=== PATIENT | female | born 1965 | race American Indian/Alaskan Native ===

== ENCOUNTER 2021-06-05 11:20 | Emergency (ER) | payer SELFPAY ==
[2021-06-05 11:41] VITALS: BP 124/77
--- NOTE | 2021-06-05 11:43 | Emergency Department Report ---
ED Chest Pain HPI - General Chief Complaint: Chest Pain Stated Complaint: CHEST PAIN Time Seen by Provider: 06/05/21 11:41 Source: patient Mode of arrival: Ambulatory Limitations: No Limitations - History of Present Illness Initial Comments: 56-year-old female with a past medical history of SVT status post ablation in hyperlipidemia presents to the ER today with complaints of left-sided chest pain, epigastric pain, left flank pain. Patient states that this past Wednesday she started with pain in her left flank, left upper lumbar area, then on Wednesday she started with nausea and vomiting and pain in her left chest which started while she was vomiting and epigastric pain. She states that she has continued to have nausea and vomiting, left chest pain and left flank/upper lumbar pain since Wednesday. The pain have been constant and just not improving. She states that this morning so far she is mainly nauseous but no more vomiting since yesterday. She denies any diarrhea. She states the last time she had a bowel movement was about 2 days ago. She denies any hematemesis, coffee-ground emesis melena or hematochezia. Denies any UTI symptoms. She states that she has been short above, but mainly on exertion. She states that she did notice some swelling about the ankles about 2 weeks ago but this has resolved. She reports no calf pain. She denies any URI symptoms or cough. She denies any apparent fever or chills. She denies any recent travel, ill contacts, bad food intake or antibiotic use recently. She states that she did get the COVID-19 vaccine including the booster, the Zookal. She states that the last time she had a stress test was in 2009, it was a treadmill stress test and was normal. She denies any alcohol abuse, tobacco use, or illicit drug use. MD Complaint: chest pain, other (Epigastric pain, left flank pain) -: days(s) (3 days ago) Severity scale (0 -10): 6 - Related Data Previous Rx's Medication Instructions Recorded Last Taken Type Famotidine [Pepcid] 20 mg PO BID #30 tablet 06/05/21 Unknown Rx HYDROcodone/APAP 5-325 [[place] 1 each PO Q4HR PRN #12 tablet 06/05/21 Unknown Rx 5/325] Ondansetron [Zofran Odt] 4 mg PO Q8HR #15 tab.rapdis 06/05/21 Unknown Rx Sucralfate [Carafate] 1 gm PO Q6HR #60 tablet 06/05/21 Unknown Rx Allergies Allergy/AdvReac Type Severity Reaction Status Date / Time Sulfa (Sulfonamide Allergy Hives Verified 06/05/21 11:36 Antibiotics) Heart Score - HEART Score History: Slightly suspicious EKG: Normal Age: 45-65 Risk factors: 1-2 risk factors Troponin: < normal limit HEART Score: 2 - EKG Read Time Time EKG Completed: 11:30 EKG Read Time: 11:42 - Critical Actions Critical Actions: 0-3 pts:0.9-1.7%risk of adverse cardiac event.Candidate for discharge ED Review of Systems ROS: Stated complaint: CHEST PAIN Other details as noted in HPI Comment: All other systems reviewed and negative Constitutional: denies: chills, fever Eyes: denies: eye pain, eye discharge, vision change ENT: denies: ear pain, throat pain, dental pain, hearing loss, epistaxis, congestion Respiratory: shortness of breath. denies: cough, SOB with exertion, SOB at rest, wheezing Cardiovascular: chest pain. denies: palpitations Gastrointestinal: abdominal pain, nausea, vomiting. denies: diarrhea, constipation, hematemesis, hematochezia Genitourinary: denies: urgency, dysuria, frequency, hematuria, discharge, abnormal menses, dyspareunia Musculoskeletal: back pain Skin: denies: rash, lesions, change in color, change in hair/nails, pruritus Neurological: denies: headache, weakness, numbness, paresthesias, confusion, abnormal gait, vertigo Psychiatric: denies: anxiety, depression, auditory hallucinations, visual hallucinations, homicidal thoughts, suicidal thoughts Hematological/Lymphatic: denies: easy bleeding, easy bruising, swollen glands ED Past Medical Hx - Surgical History Past Surgical History?: No - Medications Home Medications: Home Medications Medication Instructions Recorded Confirmed Last Taken Type Famotidine [Pepcid] 20 mg PO BID #30 tablet 06/05/21 Unknown Rx HYDROcodone/APAP 5-325 [[place] 1 each PO Q4HR PRN #12 tablet 06/05/21 Unknown Rx 5/325] Ondansetron [Zofran Odt] 4 mg PO Q8HR #15 tab.rapdis 06/05/21 Unknown Rx Sucralfate [Carafate] 1 gm PO Q6HR #60 tablet 06/05/21 Unknown Rx ED Physical Exam - General Limitations: No Limitations General appearance: alert, in distress, obese (Patient appears uncomfortable from pain) - Head Head exam: Present: atraumatic, normocephalic, normal inspection - Eye Eye exam: Present: normal appearance, PERRL, EOMI Pupils: Present: normal accommodation - ENT ENT exam: Present: normal exam, mucous membranes moist - Neck Neck exam: Present: normal inspection, full ROM - Respiratory Respiratory exam: Present: normal lung sounds bilaterally. Absent: respiratory distress, wheezes, rales, rhonchi - Cardiovascular Cardiovascular Exam: Present: regular rate, normal rhythm, normal heart sounds - GI/Abdominal GI/Abdominal exam: Present: soft, tenderness (Moderate epigastric tenderness with some guarding; mild left upper quadrant tenderness). Absent: distended, rebound, rigid - Back Exam Back exam: Present: normal inspection, full ROM, CVA tenderness (L) - Neurological Exam Neurological exam: Present: alert, oriented X3, CN II-XII intact, normal gait - Psychiatric Psychiatric exam: Present: normal affect, normal mood - Skin Skin exam: Present: intact ED Course Vital Signs 06/05/21 11:40 Temperature 97.5 F L Pulse Rate 94 H Respiratory 20 Rate Blood Pressure 124/77 [Right] O2 Sat by Pulse 99 Oximetry ED Medical Decision Making - Lab Data Result diagrams: 06/05/21 12:25 06/05/21 12:25 - EKG Data EKG shows normal: sinus rhythm Rate: normal - EKG Data Interpretation: normal EKG - Radiology Data Radiology results: report reviewed Patient: JAJA MYRICK MR#: [id number] : 1965 Acct:[id number] Age/Sex: 56 / F ADM Date: 06/05/21 Loc: ED Attending Dr: Ordering Physician: RAH NORTON Date of Service: 06/05/21 Procedure(s): XR chest routine 2V Accession Number(s): [id number] cc: RAH NORTON Fluoro Time In Minutes: XR chest routine 2V INDICATION / CLINICAL INFORMATION: Chest Pain/epigastric pain COMPARISON: None available. FINDINGS: SUPPORT DEVICES: Loop recorder. HEART / MEDIASTINUM: No significant abnormality. LUNGS / PLEURA: Lungs are clear. Costophrenic sulci are sharp. No pneumothorax. ADDITIONAL FINDINGS: No significant additional findings. IMPRESSION: 1. No acute findings. Signer Name: Hardeep Bradford MD Signed: 06/05/2021 12:52 PM Workstation Name: [id number] Transcribed By: MAYNOR Dictated By: Hardeep Bradford MD Electronically Authenticated By: Hardeep Bradford MD Signed Date/Time: 06/05/21 125 DD/ 125 TD/TT: Patient: JAJA MYRICK MR#: [id number] : 1965 Acct:[id number] Age/Sex: 56 / F ADM Date: 06/05/21 Loc: ED Attending Dr: Ordering Physician: RAH NORTON Date of Service: 06/05/21 Procedure(s): CT abdomen pelvis w con Accession Number(s): [id number] cc: RAH NORTON CT ABDOMEN AND PELVIS WITH IV CONTRAST INDICATION: Epigastric pain. COMPARISON: None available. TECHNIQUE: All CT scans at this facility use dose modulation, automated exposure control, iterative reconstruction or weight based dosing, when appropriate, to reduce radiation dose to as low as reasonably achievable. FINDINGS: Lung Bases: No significant abnormality. Skeletal System: No acute abnormality. ABDOMEN: Liver: No significant abnormality. Gallbladder: No significant abnormality. Bile Ducts: No significant abnormality. Adrenals: No significant abnormality. Right Kidney: No significant abnormality. Left Kidney: No significant abnormality. Pancreas: No significant abnormality. Spleen: No significant abnormality. Upper GI tract: As seen on coronal image 41, there are gas bubbles along the inferior wall of the gastric antrum. Upper GI tract is otherwise unremarkable. Lymph Nodes: No significant adenopathy. Aorta: No significant abnormality. Additional Findings: No significant abnormality. PELVIS: Colon: No acute abnormality. Urinary Bladder and Distal Ureters: No significant abnormality. Appendix: No significant abnormality. Lymph Nodes: No significant adenopathy. Additional Findings: None. IMPRESSION: 1. Probable gastric antral ulcer. Endoscopy is recommended to better characterize this. Signer Name: Issa Jain MD Signed: 06/05/2021 3:57 PM Workstation Name: [id number] Transcribed By: JORDI Dictated By: Issa Jain MD Electronically Authenticated By: Issa Jain MD Signed Date/Time: 06/05/211556 DD/ 50 TD/TT: - Medical Decision Making 1715: Labs reviewed-CBC and CMP unremarkable. Lipase is normal. Urinalysis negative for UTI. Troponin was normal. EKG was also normal without any signs of STEMI or acute ischemic changes or dysrhythmias. Chest x-ray shows nothing acute. CT abdomen pelvis with IV contrast showed possible gastric ulcer but otherwise nothing else acute. Patient reported that her pain was better after initial meds, but when she started complaining again about epigastric pain coming back and she was given lidocaine, Maalox and Levsin prior to discharge. She currently sitting in recliner, she does not appear to be in any significant distress, she is not toxic and she is not ill-appearing. She is neurologically intact with a normal gait. Discussed all results with patient. At this time there is no indication for any additional testing, specialist consult or admission to the hospital. Informed patient that she will need to follow-up with GI for an upper endoscopy in the meantime, she will be given medication to cover for possible peptic ulcer disease. Discussed this food choices with patient. Expressed understanding for instructions and agree with plan. Patient was stable at time of discharge. Critical care attestation.: If time is entered above; I have spent that time in minutes in the direct care of this critically ill patient, excluding procedure time. ED Disposition Clinical Impression: Peptic ulcer disease, Epigastric pain, Nonspecific chest pain Disposition: 01 HOME / SELF CARE / HOMELESS Is pt being admited?: No Does the pt Need Aspirin: No Condition: Stable Instructions: Peptic Ulcer, Nonspecific Chest Pain, Adult Additional Instructions: I recommend that you take the Pepcid, Carafate and Protonix as prescribed. Take the Zofran as prescribed to help with any nausea vomiting. Take the hydroco done as prescribed for pain. It is very important that you follow-up with a GI specialist to get an endoscopy to take a closer look at this possible peptic ulcer seen on the CT. If you do not have a GI specialist 1 will be provided for you on your discharge instructions. I do recommend avoiding any form of alcohol, NSAIDs, spicy foods, acidic foods or caffeine as these can flareup his symptoms. Return to the ER if your symptoms changes in any way. Prescriptions: Sucralfate [Carafate] 1 gm PO Q6HR #60 tablet HYDROcodone/APAP 5-325 [[place] 5/325] 1 each PO Q4HR PRN #12 tablet PRN Reason: Pain Famotidine [Pepcid] 20 mg PO BID #30 tablet Ondansetron [Zofran Odt] 4 mg PO Q8HR #15 tab.rosemarie Referrals: [facility] [Provider Group] - 3-5 Days Forms: Work/School Release Form(ED) Time of Disposition: 16:48
[2021-06-05] MEDS ORDERED: SODIUM CHLORIDE 0.9% 1000 ML 1,000 ML IV ONE (11:59)
[2021-06-05] MEDS ORDERED: ASPIRIN 325 MG TAB PO ONE (11:59)
[2021-06-05] MEDS ORDERED: FAMOTIDINE 20 MG TAB PO ONE (12:00)
[2021-06-05] MEDS ORDERED: MORPHINE 4 MG/1 ML INJ IV ONE (12:00)
[2021-06-05] MEDS ORDERED: ONDANSETRON 4 MG/2 ML INJ IV ONE (12:00)
--- NOTE | 2021-06-05 12:56 | XRay Report ---
XR chest routine 2V INDICATION / CLINICAL INFORMATION: Chest Pain/epigastric pain COMPARISON: None available. FINDINGS: SUPPORT DEVICES: Loop recorder. HEART / MEDIASTINUM: No significant abnormality. LUNGS / PLEURA: Lungs are clear. Costophrenic sulci are sharp. No pneumothorax. ADDITIONAL FINDINGS: No significant additional findings. IMPRESSION: 1. No acute findings. Signer Name: Hardeep Bradfrod MD Signed: 06/05/2021 12:52 PM Workstation Name: [id number]
[2021-06-05 13:49] LABS: Basophils % (Auto) 0.5 % (0.0-1.8); Eosinophils # (Auto) 0.1 K/mm3 (0.0-0.4); Eosinophils % (Auto) 1.3 % (0.0-4.3); Hemoglobin 13.9 gm/dl (10.1-14.3); Lymphocytes # (Auto) 1.8 K/mm3 (1.2-5.4); Lymphocytes % (Auto) 35.5 % (13.4-35.0); Mean Corpuscular HGB Conc 33 % (30-34); Mean Corpuscular Volume 92 fl (79-97); Monocytes # (Auto) 0.5 K/mm3 (0.0-0.8); Monocytes % (Auto) 9.7 % (0.0-7.3); Platelet Count 256 K/mm3 (140-440); Red Blood Count 4.67 M/mm3 (3.65-5.03); Red Cell Distribution Width 14.1 % (13.2-15.2)
[2021-06-05 14:15] LABS: Alanine Aminotransferase 12 units/L (7-56); Albumin 4.1 g/dL (3.9-5); BUN/Creatinine Ratio 11; Blood Urea Nitrogen 9 mg/dL (7-17); Calcium 9.1 mg/dL (8.4-10.2); Hemolysis Index 5
--- NOTE | 2021-06-05 16:02 | Cat Scan Report ---
CT ABDOMEN AND PELVIS WITH IV CONTRAST INDICATION: Epigastric pain. COMPARISON: None available. TECHNIQUE: All CT scans at this facility use dose modulation, automated exposure control, iterative reconstructi on or weight based dosing, when appropriate, to reduce radiation dose to as low as reasonably achieva ble. FINDINGS: Lung Bases: No significant abnormality. Skeletal System: No acute abnormality. ABDOMEN: Liver: No significant abnormality. Gallbladder: No significant abnormality. Bile Ducts: No significant abnormality. Adrenals: No significant abnormality. Right Kidney: No significant abnormality. Left Kidney: No significant abnormality. Pancreas: No significant abnormality. Spleen: No significant abnormality. Upper GI tract: As seen on coronal image 41, there are gas bubbles along the inferior wall of the gas tric antrum. Upper GI tract is otherwise unremarkable. Lymph Nodes: No significant adenopathy. Aorta: No significant abnormality. Additional Findings: No significant abnormality. PELVIS: Colon: No acute abnormality. Urinary Bladder and Distal Ureters: No significant abnormality. Appendix: No significant abnormality. Lymph Nodes: No significant adenopathy. Additional Findings: None. IMPRESSION: 1. Probable gastric antral ulcer. Endoscopy is recommended to better characterize this. Signer Name: Issa Jain MD Signed: 06/05/2021 3:57 PM Workstation Name: [id number]
[2021-06-05] MEDS ORDERED: ALUM-MAG HYDROXIDE-SIMETHICONE 200-200-20MG/5ML ORAL LIQD 30 ML PO ONE (16:11)
[2021-06-05] MEDS ORDERED: HYOSCYAMINE SUBL 0.125 MG TAB SL ONE (16:11)
[2021-06-05] MEDS ORDERED: LIDOCAINE VISCOUS 2% 15 ML ORAL LIQD PO ONE (16:11)
[2021-06-05 16:29] LABS: Bilirubin,Urine NEG (Negative); Blood,Urine SM (Negative); Color,Urine Straw (Yellow); Mucus,Urine FEW /HPF; Protein,Urine <15 mg/dL mg/dL (Negative); Urobilinogen,Urine < 2.0 mg/dL (<2.0)
--- NOTE | 2021-06-06 10:52 | Electrocardiograph Report ---
[facility] Test Date: 2021-06-05 Test Time: 11:30:20 Pat Name: JAJA MYRICK Department: Room: Gender: F Mobile Lounge Driver: BERTA : 1965 Requested By: SNOW MERCADO Order Number: [id number] Reading MD: Cyril Bergman Measurements Intervals [place] Rate: 94 P: 48 FL: 171 QRS: 56 QRSD: 97 T: 37 QT: 373 QTc: 466 Interpretive Statements Sinus rhythm No previous ECG available for comparison Electronically Signed On 06-06-2021 10:52:05 EST by Cyril Bergman
== END 2021-06-05 17:19 | disposition home or self-care (01) ==
LOC: ED 11:20
DX: K27.9 Peptic ulcer, site unspecified, unspecified as acute or chronic, without hemorrhage or perforation (principal); R07.89 Other chest pain; R10.13 Epigastric pain; Z88.2 Allergy status to sulfonamides; Z79.899 Other long term (current) drug therapy
CPT/HCPCS: 36415; 71046; 74177; 80053; 81001; 83690; 84484; 85025; 93005; 96361; 96374; 96375; 99284; J2270; J2405; J7030; Q9967; Q0162